=== PATIENT | female | born 1945 | race Caucasian/White ===

== ENCOUNTER 2022-01-20 17:47 | Emergency (ER) | payer MEDICARE ==
[2022-01-20] MEDS ORDERED: Ondansetron PF 4 MG/2 ML Vial ONE (18:17)
[2022-01-20] MEDS ORDERED: Morphine 4 MG/ML VIAL ONE ×2 (18:17→20:15)
[2022-01-20] MEDS ORDERED: PROPOFOL 20 ML ONE (20:16)
[2022-01-20] MEDS ORDERED: Ketorolac Tromethamine 30 MG/ML VIAL ONE (20:16)
== END 2022-01-20 23:06 | disposition home or self-care (01) ==
LOC: ERS 17:47
DX: S52.532A Colles' fracture of left radius, initial encounter for closed fracture (principal); I10 Essential (primary) hypertension; X58.XXXA Exposure to other specified factors, initial encounter
CPT/HCPCS: 24565; 70450; 72170; 96374; 96375; 96376; 99152; J1885; J2270; J2405; J2704

== ENCOUNTER 2022-01-25 09:12 | Outpatient (CLI) | payer MEDICARE ==
[2022-01-25 11:01] LABS: Anion Gap 15 mmol/L (10-20); BUN (Urea Nitrogen) 16 mg/dL (9.8-20.1); Calc. Creatinine Clearance 0 mL/min (70-130); Calcium 9.3 mg/dL (7.8-10.44); Carbon Dioxide 29 mmol/L (23-31); Chloride 100 mmol/L (98-107); Estimated GFR 65; Glucose 172 mg/dL (83-110); Potassium 4.1 mmol/L (3.5-5.1); Sodium 140 mmol/L (136-145)
== END 2022-01-25 09:13 | disposition home or self-care (01) ==
LOC: LABBT 09:12
PROVIDERS: ATTEND Orthopaedic Surgery
DX: Z01.818 Encounter for other preprocedural examination (principal); S52.502A Unspecified fracture of the lower end of left radius, initial encounter for closed fracture; Z20.822 Contact with and (suspected) exposure to COVID-19
CPT/HCPCS: 80048; 87811; 93005; 93010

== ENCOUNTER 2022-01-26 12:33 | Day surgery (SDC) | payer MEDICARE ==
[2022-01-26] MEDS ORDERED: Levofloxacin 500 mg/D5W 100 ml Premix Bag ONE (14:05)
[2022-01-26] MEDS ORDERED: Clindamycin/D5W 900 mg/50 ml Premix Bag ONE (14:05)
[2022-01-26] MEDS ORDERED: fentaNYL Citrate/PF 100 MCG/2 ML SYRINGE ONE (14:27)
[2022-01-26] MEDS ORDERED: Ondansetron PF 4 MG/2 ML Vial ONE ×2 (14:43→15:59)
[2022-01-26] MEDS ORDERED: ePHEDrine 50 MG/ML VIAL ONE (14:43)
[2022-01-26] MEDS ORDERED: PROPOFOL 200 MG/20 ML VIAL ONE (14:43)
[2022-01-26] MEDS ORDERED: Labetalol HCl 100 MG/20 ML VIAL ONE (14:43)
[2022-01-26] MEDS ORDERED: Lidocaine 1% PF 5 ML VIAL ONE (14:43)
[2022-01-26] MEDS ORDERED: Bupivacaine 0.25% HCL 30 ML VIAL ONE (15:25)
[2022-01-26] MEDS ORDERED: Fentanyl 100 MCG/2 ML VIAL ONE (16:16)
[2022-01-26] MEDS ORDERED: HYDROcodone/Acetaminophen 5/325 mg Tablet ONE (17:31)
== END 2022-01-26 19:30 | disposition home or self-care (01) ==
LOC: SDC 12:33
PROVIDERS: ATTEND Orthopaedic Surgery
PROC: 0PSJ04Z Reposition Left Radius with Internal Fixation Device, Open Approach (ICD-10-PCS; principal; 2022-01-26)
DX: S52.502A Unspecified fracture of the lower end of left radius, initial encounter for closed fracture (principal); E11.9 Type 2 diabetes mellitus without complications; E78.5 Hyperlipidemia, unspecified; I10 Essential (primary) hypertension; G25.81 Restless legs syndrome; M85.80 Other specified disorders of bone density and structure, unspecified site; Z79.82 Long term (current) use of aspirin; Z79.899 Other long term (current) drug therapy; Z88.0 Allergy status to penicillin; Z88.8 Allergy status to other drugs, medicaments and biological substances; W19.XXXA Unspecified fall, initial encounter
CPT/HCPCS: 25607; 73100; 76000; C1713 ×2; C1776; J1956; J2405; J3010; J3490; S0020

== ENCOUNTER 2024-08-07 18:03 | Observation (INO) | payer MEDICARE ==
[2024-08-07 18:21] VITALS: BMI 24.9
[2024-08-07] MEDS ORDERED: Acetaminophen 650 MG Suppository PR PRN (18:24)
[2024-08-07] MEDS ORDERED: Nitroglycerin 0.4 MG TAB (25 Tab Bottle) SL PRN (18:25)
[2024-08-07] MEDS ORDERED: Electrolyte Replacement Protocol 1 EACH FS SCH (18:30)
[2024-08-07] MEDS ORDERED: Potassium Chloride 20 MEQ in Premix 1 BAG IVPB SCH (18:45)
[2024-08-07 19:29] LABS: Magnesium 2.3 mg/dL (1.6-2.6); Potassium 3.3 mmol/L (3.5-5.1)
[2024-08-07 19:35] LABS: Troponin I Less than 0.010 ng/mL (< 0.028)
[2024-08-07] MEDS: Famotidine 20 MG TAB PO SCH (20:19)
[2024-08-07] MEDS ORDERED: Dextrose 5% in Water 1,000 ML IV PRN (21:03)
[2024-08-07] MEDS ORDERED: Dextrose 50% Abboject 50 ML SYRINGE SLOW IVP PRN (21:03)
[2024-08-07] MEDS ORDERED: Glucagon 1 MG/ML KIT IM PRN (21:03)
[2024-08-07] MEDS ORDERED: Insulin Lispro 100 UNIT/ML 10 ML VIAL SC PRN ×2 (21:03)
[2024-08-07] MEDS: Potassium Chloride 20 MEQ in Premix 1 BAG IVPB SCH (21:20)
[2024-08-07] MEDS: Acetaminophen 325 MG TAB PO PRN (21:40)
[2024-08-07 22:54] LABS: Troponin I Less than 0.010 ng/mL (< 0.028)
[2024-08-08 04:35] LABS: #Basophils 0.05 10x3/uL (0.0-0.2); %Basophils 0.6 % (0.0-1.0); %Eosinophils 5.5 % (0.0-10.0); %Lymphocytes 31.9 % (21.0-51.0); %Monocytes 11.4 % (0.0-10.0); %Neutrophils 50.3 % (42.0-75.0); Hematocrit 37.2 % (36.0-47.0); Hemoglobin 12.1 g/dL (12.0-16.0); Mean Corpuscular HGB CONC 32.5 g/dL (32.0-36.0); Mean Corpuscular Hemoglobin 30.2 pg (27.0-31.0); Mean Corpuscular Volume 92.8 fL (78.0-98.0); Mean Platelet Volume 12.9 fL (7.4-10.4); Platelet Count 213 10x3/uL (130-400); RBC Distribution Width 12.7 % (11.5-14.5); Red Blood Cell (RBC) Count 4.01 mill/uL (4.20-5.40)
[2024-08-08 05:10] LABS: Hemoglobin A1c 6.8 % (4.0-6.0)
[2024-08-08 05:14] LABS: Anion Gap 12 mmol/L (10-20); BUN (Urea Nitrogen) 16 mg/dL (9.8-20.1); Calc. Creatinine Clearance 53 mL/min (70-130); Calcium 8.5 mg/dL (7.8-10.44); Carbon Dioxide 25 mmol/L (23-31); Cardiac Risk 5.2 (Less than 4.5); Chloride 106 mmol/L (98-107); Cholesterol 165 mg/dl (< 200 Desired); Estimated GFR 61; Glucose 135 mg/dL (83-110); HDL Cholesterol 32 mg/dL (>60 Neg Risk); LDL Cholesterol, Calculated 104 mg/dL; Potassium 3.2 mmol/L (3.5-5.1); Sodium 140 mmol/L (136-145); Triglycerides 146 mg/dL (Less than 150)
[2024-08-08] MEDS ORDERED: BIOTIN 10 MG PO SCH (09:00)
[2024-08-08] MEDS ORDERED: Aspirin Chewable 81 MG TAB PO SCH (09:00)
[2024-08-08] MEDS ORDERED: Regadenoson 0.4 MG/5 ML SYRINGE ONE (10:35)
[2024-08-08 11:20] VITALS: BMI 24.9
[2024-08-08] MEDS: glipiZIDE XL 10 mg ER.TAB PO SCH (12:03)
[2024-08-08] MEDS: Enoxaparin 40 MG (0.4 mL) SYRINGE SC SCH (12:45)
[2024-08-08] MEDS: Hydrochlorothiazide 25 MG TAB PO SCH (12:45)
[2024-08-08] MEDS: FLUoxetine HCl 20 MG CAP PO SCH (12:45)
[2024-08-08] MEDS: Calcium Carbonate 600 MG + Vit D TAB PO SCH (12:45)
[2024-08-08] MEDS: Empagliflozin 10 MG TAB PO SCH (12:46)
[2024-08-08] MEDS: Lisinopril 20 MG TAB PO SCH (12:46)
[2024-08-08] MEDS: Aspirin Chewable 81 MG TAB PO SCH (12:46)
[2024-08-08] MEDS: Potassium Chloride 20 MEQ TAB PO SCH ×2 (12:56→14:49)
[2024-08-08] MEDS: Rosuvastatin 20 MG TAB PO SCH (22:49)
[2024-08-09 00:56] LABS: Potassium 3.2 mmol/L (3.5-5.1)
[2024-08-09] MEDS: Potassium Chloride 20 MEQ TAB PO SCH (01:37)
[2024-08-09 06:04] LABS: Potassium 4.1 mmol/L (3.5-5.1)
[2024-08-09] MEDS: Rosuvastatin 20 MG TAB PO SCH (08:33)
[2024-08-09 11:34] VITALS: BP 130/61; TEMP 97.5
== END 2024-08-09 11:46 | disposition home or self-care (01) ==
LOC: INTOOBSV 18:06 → OBS 18:06
PROVIDERS: ADMIT Internal Medicine; ATTEND Internal Medicine
DX: R07.89 Other chest pain (principal); I10 Essential (primary) hypertension; E11.9 Type 2 diabetes mellitus without complications; E78.5 Hyperlipidemia, unspecified; E87.6 Hypokalemia; F32.A Depression, unspecified; M19.90 Unspecified osteoarthritis, unspecified site; Z90.49 Acquired absence of other specified parts of digestive tract; Z88.8 Allergy status to other drugs, medicaments and biological substances; Z88.0 Allergy status to penicillin; Z79.85 Long-term (current) use of injectable non-insulin antidiabetic drugs; Z79.899 Other long term (current) drug therapy
CPT/HCPCS: 71045; 78452; 80048; 80053; 80061; 82962 ×3; 83036; 83735; 83880; 84132 ×3; 84443; 84484 ×2; 85025 ×2; 93005; 93017; 99285; A9502; J1650 ×2; J2785 ×2; J3480; 36415; 36416; 96372; 96374; 96376; G0378